=== PATIENT | female | born 1990 | race Two or more races ===

== ENCOUNTER 2019-05-23 14:51 | Emergency (ER) | payer MEDICAID ==
[~2019-05-23] VITALS: Ht 157.5 cm; Wt 54.4 kg
[~2019-05-23 14:51] MED LIST: BACITRACIN15 GM TOPIC
[2019-05-23 14:59] VITALS: BP 108/71
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
[2019-05-23] MEDS ORDERED: ROBAXIN-750750 MG PO (15:42)
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
[2019-05-23 16:11] VITALS: BP 118/65
--- NOTE | 2019-05-23 16:11 | NUR ---
ER DISCHARGE NOTE: Patient is cleared to be discharged per PA, pt is aox4, on room air, with stable vital signs. pt was given dc and prescription instructions, pt was able to verbalize understanding, pt id band removed. pt is able to ambulate with steady gait. pt took all belongings.
== END 2019-05-23 16:11 | disposition home or self-care (01) ==
LOC: EMR 15:19
DX: S16.1XXA Strain of muscle, fascia and tendon at neck level, initial encounter (principal); M62.830 Muscle spasm of back; S70.11XA Contusion of right thigh, initial encounter; V43.52XA Car driver injured in collision with other type car in traffic accident, initial encounter; Y92.414 Local residential or business street as the place of occurrence of the external cause
CPT/HCPCS: 99282

== ENCOUNTER 2019-11-01 19:35 | Emergency (ER) | payer MEDICAID ==
[~2019-11-01] VITALS: Ht 157.5 cm; Wt 57.2 kg
[~2019-11-01 19:35] MED LIST changes: +GABAPENTIN300 MG ORAL; +NITROFURANTOIN100 M2 ORAL; +ROBAXIN-750750 MG PO
[2019-11-01 20:00] VITALS: BP 101/69
--- NOTE | 2019-11-01 20:00 | NUR ---
ED Nurse Note: Pt walked into ED from home for c/o nausea/vomiting since 0800 today. Pt denies any pain. Pt reports being 5 weeks at this time. Pt is aaox4, breathing is normal and unlabored, no cardiac distress noted.
[2019-11-01 21:08] LABS: APPEARANCE,URINE CLEAR; BILIRUBIN, URINE NEGATIVE (NEGATIVE); COLOR,URINE AMBER; GLUCOSE, URINE (UA) NEGATIVE (NEGATIVE); KETONES,URINE NEGATIVE (NEGATIVE); LEUKOCYTE ESTERASE ,URINE 1+ (NEGATIVE); NITRITE,URINE NEGATIVE (NEGATIVE); PH,URINE 7 (4.5-8.0); PROTEIN,URINE 1+ (NEGATIVE); UROBILINOGEN,URINE NORMAL MG/DL (0.0-1.0)
--- NOTE | 2019-11-01 21:28 | Diagnostic Imaging Report ---
Indication: First trimester . Patient presents with pelvic pain Technique: Grayscale and duplex Doppler imaging of the pelvis performed utilizing a transabdominal scan and endovaginal scan. Comparison: None Findings: There is evidence of an intrauterine with a yolk sac and gestational sac demonstrated. By mean sac diameter measurements gestational age is estimated at 5 weeks 3 days. pole is not seen, but the may be too early to detect a pole by endovaginal scan. Suggest repeating the study in one or two weeks and correlating with serial quantitative beta-hCG. Follow-up is needed. Both ovaries are demonstrated and appear normal on grayscale images with dopplerable blood flow. The left ovary is 2.8 x 1.6 x 3.0 cm. Right ovary is 3.1 x 2 x 2.7 cm. There is trace free fluid present within the pelvis. IMPRESSION: 5 week 3 day intrauterine . This may be an early IUP but viability and prognosis for progression of the IUP are unknown at this time. Follow-up evaluation as recommended.
[2019-11-01 21:33] LABS: BASOPHILS % (AUTO) 1.3 % (0.0-2.0); EOSINOPHILS % (AUTO) 1.4 % (0.0-3.0); HEMATOCRIT 39.3 % (37.0-47.0); MEAN CORPUSCULAR VOLUME 88 FL (80-99); MONOCYTES % (AUTO) 6.1 % (1.0-10.0); NEUTROPHILS % (AUTO) 66.2 % (45.0-75.0); PLATELET COUNT 201 K/UL (150-450); RED CELL DISTRIBUTION WIDTH 12.3 % (11.6-14.8); WHITE BLOOD COUNT 11.2 K/UL (4.8-10.8)
[2019-11-01 21:44] LABS: ANION GAP 10 mmol/L (5-15); BLOOD UREA NITROGEN 13 mg/dL (7-18); CALCIUM 9.7 MG/DL (8.5-10.1); CARBON DIOXIDE 28 MMOL/L (21-32); CHLORIDE 101 MMOL/L (98-107); CREATININE 0.5 MG/DL (0.55-1.30); POTASSIUM 3.7 MMOL/L (3.5-5.1); SODIUM 139 MMOL/L (136-145)
[2019-11-01 21:49] LABS: ALANINE AMINOTRANSFERASE 12 U/L (12-78); ALBUMIN 4.2 G/DL (3.4-5.0); ALBUMIN/GLOBULIN RATIO 1.2 (1.0-2.7); ALKALINE PHOSPHATASE 76 U/L (46-116); ASPARTATE AMINO TRANSFERASE 9 U/L (15-37); BILIRUBIN,TOTAL 0.3 MG/DL (0.2-1.0)
[2019-11-01] MEDS ORDERED: ONDANSETRON ODT4 MG BC (22:14)
[2019-11-01 22:25] VITALS: BP 110/75
--- NOTE | 2019-11-01 22:25 | NUR ---
ER DISCHARGE NOTE: Patient is cleared to be discharged per ERMD, pt is aox4, on room air, with stable vital signs. pt was given dc and prescription instructions, pt was able to verbalize understanding, pt id band and iv site removed without complications. pt is able to ambulate with steady gait. pt took all belongings.
[2019-11-04] MEDS ORDERED: CEPHALEXIN500 MG ORAL (11:27)
--- NOTE | 2019-11-04 11:29 | Emergency Room Report ---
Physical Exam Vital Signs Date Time Temp Pulse Resp B/P (MAP) Pulse Ox O2 Delivery O2 Flow Rate FiO2 11/01/19 19:44 98.4 74 16 101/69 (80) 98 Room Air Medical Decision Making Diagnostic Impression: Primary Impression: and not yet delivered in first trimester Additional Impression: Vomiting ER Course Briefly this 29-year-old female seen in the emergency department several days ago. Microbiology shows Growth of group B strep. Will start patient on Keflex. Sent electronically to her pharmacy. Patient updated by telephone. 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 Advised to return to the emergency department any new or worsening symptoms. Last Vital Signs Date Time Temp Pulse Resp B/P (MAP) Pulse Ox O2 Delivery O2 Flow Rate FiO2 11/01/19 22:25 98.4 80 16 110/75 98 Room Air Disposition: HOME, SELF-CARE Condition: Stable Scripts Cephalexin* (KEFLEX*) 500 Mg Capsule 500 MG ORAL EVERY 12 HOURS, #20 CAP 0 Refills Prov: Andrzej Leung MD 11/04/19 Ondansetron Odt* (ZOFRAN ODT*) 4 Mg Tab.rapdis 4 MG BC EVERY 6 HOURS PRN for Nausea & Vomiting, #20 TAB 0 Refills Prov: Nehemiah Gonzalez MD 11/01/19 Referrals: [facility] (PCP) Patient Instructions: Hyperemesis Gravidarum Andrzej Leung MD Nov 04, 2019 11:29
--- NOTE | 2019-11-07 13:21 | Emergency Room Report ---
History of Present Illness General Chief Complaint: Vomiting Source: Patient Present Illness HPI 29-year-old female presents ED with vomiting x1 day. States she is . Recently had a miscarriage but states she is a again. Has not yet had an ultrasound. Denies any pain. Denies any spotting. Denies any alcohol or drug use. No other aggravating relieving factors. Denies any other associated symptoms Allergies: Coded Allergies: No Known Allergies (Unverified , 02/22/19) Patient History Past Medical History: none Past Surgical History: none Pertinent Family History: none Social History: Denies: smoking, alcohol use, drug use Last Menstrual Period: 08/23/19 Now: Yes : 5 Para: 2 Immunizations: UTD Reviewed Nursing Documentation: PMH: Agreed; PSxH: Agreed Nursing Documentation-PMH Past Medical History: No Stated History Hx Cardiac Problems: No - 2 MOLAR PREGNANCIES Hx Hypertension: No Hx Pacemaker: No Hx Asthma: No Hx Diabetes: No Hx Cancer: No Hx Gastrointestinal Problems: No Hx Dialysis: No Hx Neurological Problems: No Hx Cerebrovascular Accident: No Hx Seizures: No Review of Systems All Other Systems: negative except mentioned in HPI Physical Exam Sp02 EP Interpretation: reviewed, normal General Appearance: no apparent distress, alert, GCS 15, non-toxic Head: normocephalic, atraumatic Eyes: bilateral eye normal inspection, bilateral eye PERRL ENT: hearing grossly normal, normal pharynx, no angioedema, normal voice Neck: full range of motion, supple/symm/no masses Respiratory: chest non-tender, lungs clear, normal breath sounds, speaking full sentences Cardiovascular #1: regular rate, rhythm, no edema Cardiovascular #2: 2+ carotid (R), 2+ carotid (L), 2+ radial (R), 2+ radial (L) , 2+ dorsalis pedis (R), 2+ dorsalis pedis (L) Gastrointestinal: normal bowel sounds, non tender, soft, non-distended, no guarding, no rebound Rectal: deferred Genitourinary: normal inspection, no CVA tenderness Musculoskeletal: back normal, normal range of motion, gait/station normal, non- tender Neurologic: alert, motor strength/tone normal, oriented x3, sensory intact, responsive, speech normal Psychiatric: judgement/insight normal, memory normal, mood/affect normal, no suicidal/homicidal ideation Reflexes: 3+ bicep (R), 3+ bicep (L), 3+ tricep (R), 3+ tricep (L), 3+ knee (R) , 3+ knee (L) Lymphatic: no adenopathy Medical Decision Making Diagnostic Impression: Primary Impression: and not yet delivered in first trimester Additional Impression: Vomiting Qualified Codes: R11.2 - Nausea with vomiting, unspecified ER Course Hospital Course 29-year-old female presents with nausea and vomiting. . No care yet. Differential diagnoses include: gastrits, gastroenterits, ectopic , ovarian torsion/cyst, UTI Clinical course Patient placed on stretcher in ED. After initial history and physical I ordered labs, IV fluids and Zofran and pelvic ultrasound. Labs-no leukocytosis, electrolytes okay, beta hCG elevated OB ultrasound-IUP detected with heart rate. Some free fluid I discussed findings with patient. Recommend close follow-up with ATTORNEY GENERAL. States she has an ATTORNEY GENERAL. Safe for discharge Diagnosis - and not yet delivered in first trimester, vomiting Stable and discharged to home with Rx zofran. Followup with PMD/ATTORNEY GENERAL. Return to ED if symptoms recur or worsen Labs Test 11/01/19 20:30 11/01/19 21:15 Urine Color Mary Ellen Urine Appearance Clear Urine pH 7 (4.5-8.0) Urine Specific Jerome 1.015 (1.005-1.035) Urine Protein 1+ (NEGATIVE) Urine Glucose (UA) Negative (NEGATIVE) Urine Ketones Negative (NEGATIVE) Urine Blood Negative (NEGATIVE) Urine Nitrite Negative (NEGATIVE) Urine Bilirubin Negative (NEGATIVE) Urine Ictotest Negative (NEGATIVE) Urine Urobilinogen Normal MG/DL (0.0-1.0) Urine Leukocyte Esterase 1+ (NEGATIVE) Urine RBC 0-2 /HPF (0 - 2) Urine WBC 10-15 /HPF (0 - 2) Urine Squamous Epithelial Cells Many /LPF (NONE/OCC) Urine Bacteria Few /HPF (NONE) Urine HCG, Qualitative Positive (NEGATIVE) White Blood Count 11.2 K/UL (4.8-10.8) Red Blood Count 4.50 M/UL (4.20-5.40) Hemoglobin 13.0 G/DL (12.0-16.0) Hematocrit 39.3 % (37.0-47.0) Mean Corpuscular Volume 88 FL (80-99) Mean Corpuscular Hemoglobin 29.0 PG (27.0-31.0) Mean Corpuscular Hemoglobin Concent 33.2 G/DL (32.0-36.0) Red Cell Distribution Width 12.3 % (11.6-14.8) Platelet Count 201 K/UL (150-450) Mean Platelet Volume 8.6 FL (6.5-10.1) Neutrophils (%) (Auto) 66.2 % (45.0-75.0) Lymphocytes (%) (Auto) 25.0 % (20.0-45.0) Monocytes (%) (Auto) 6.1 % (1.0-10.0) Eosinophils (%) (Auto) 1.4 % (0.0-3.0) Basophils (%) (Auto) 1.3 % (0.0-2.0) Sodium Level 139 MMOL/L (136-145) Potassium Level 3.7 MMOL/L (3.5-5.1) Chloride Level 101 MMOL/L (98-107) Carbon Dioxide Level 28 MMOL/L (21-32) Anion Gap 10 mmol/L (5-15) Blood Urea Nitrogen 13 mg/dL (7-18) Creatinine 0.5 MG/DL (0.55-1.30) Estimat Glomerular Filtration Rate > 60 mL/min (>60) Glucose Level 91 MG/DL (74-106) Calcium Level 9.7 MG/DL (8.5-10.1) Total Bilirubin 0.3 MG/DL (0.2-1.0) Aspartate Amino Transf (AST/SGOT) 9 U/L (15-37) Alanine Aminotransferase (ALT/SGPT) 12 U/L (12-78) Alkaline Phosphatase 76 U/L (46-116) Total Protein 7.8 G/DL (6.4-8.2) Albumin 4.2 G/DL (3.4-5.0) Globulin 3.6 g/dL Albumin/Globulin Ratio 1.2 (1.0-2.7) Lipase 187 U/L (73-393) Human Chorionic Gonadotropin, Quant 00151 mIU/mL (1-6) CT/MRI/US Diagnostic Results CT/MRI/US Diagnostic Results : Imaging Test Ordered: OB US Impression Findings: There is evidence of an intrauterine with a yolk sac and gestational sac demonstrated. By mean sac diameter measurements gestational age is estimated at 5 weeks 3 days. pole is not seen, but the may be too early to detect a pole by endovaginal scan. Suggest repeating the study in one or two weeks and correlating with serial quantitative beta-hCG. Follow-up is needed. Both ovaries are demonstrated and appear normal on grayscale images with dopplerable blood flow. The left ovary is 2.8 x 1.6 x 3.0 cm. Right ovary is 3.1 x 2 x 2.7 cm. There is trace free fluid present within the pelvis. Status: improved Disposition: HOME, SELF-CARE Condition: Stable Scripts Cephalexin* (KEFLEX*) 500 Mg Capsule 500 MG ORAL EVERY 12 HOURS, #20 CAP 0 Refills Prov: Andrzej Leung MD 11/04/19 Ondansetron Odt* (ZOFRAN ODT*) 4 Mg Tab.rapdis 4 MG BC EVERY 6 HOURS PRN for Nausea & Vomiting, #20 TAB 0 Refills Prov: Nehemiah Gonzalez MD 11/01/19 Referrals: [facility] (PCP) Patient Instructions: Hyperemesis Gravidarum Nehemiah Gonzalez MD Nov 07, 2019 13:21
== END 2019-11-01 22:25 | disposition home or self-care (01) ==
LOC: EMR 20:03
DX: O26.91 Pregnancy related conditions, unspecified, first trimester (principal); R11.10 Vomiting, unspecified; O98.811 Other maternal infectious and parasitic diseases complicating pregnancy, first trimester; B95.1 Streptococcus, group B, as the cause of diseases classified elsewhere; Z3A.00 Weeks of gestation of pregnancy not specified
CPT/HCPCS: 36415; 76801; 76817; 80053; 81003; 81025; 83690; 84702; 85025; 87086; 96361; 96374; J2405; J7030; Z7502; 99284